=== PATIENT | female | born 1945 | race Caucasian/White ===

== ENCOUNTER → 2016-09-10 | Outpatient (CLI) | payer BC, OTHER | LOC: FIMAGING 15:10 | PROVIDERS: ATTEND Orthopaedic Surgery Orthopaedic Surgery of the Spine | DX: Z09 Encounter for follow-up examination after completed treatment for conditions other than malignant neoplasm (principal); Z98.890 Other specified postprocedural states ==

== ENCOUNTER → 2017-05-31 | Outpatient (CLI) | payer BC, OTHER | LOC: FIMAGING 10:26 | PROVIDERS: ATTEND Family Medicine | DX: Z12.31 Encounter for screening mammogram for malignant neoplasm of breast (principal) | CPT/HCPCS: G0202 ==

== ENCOUNTER → 2017-06-09 | Outpatient (CLI) | payer BC, OTHER | LOC: FIMAGING 14:01 | PROVIDERS: ATTEND Family Medicine | DX: R92.8 Other abnormal and inconclusive findings on diagnostic imaging of breast (principal); N63.10 Unspecified lump in the right breast, unspecified quadrant | CPT/HCPCS: G0206 ==

== ENCOUNTER → 2017-06-20 | Outpatient (CLI) | payer BC, OTHER ==
[~2017-06-20] MED LIST: BUPIVACAINE 0.5% 10 ML SDV ONE; LIDOCAINE 1% 300 MG/30 ML SDV ONE
[2017-06-24 16:37] LABS: FIXED IN 10%FORM 6-72HR Yes; FIXED IN 10%FORM W/IN 1 HR Yes
== END ==
LOC: FIMAGING 07:02
PROVIDERS: ATTEND Family Medicine
PROC: 0HBT3ZX Excision of Right Breast, Percutaneous Approach, Diagnostic (ICD-10-PCS; principal; 2017-06-20)
DX: C50.911 Malignant neoplasm of unspecified site of right female breast (principal)
CPT/HCPCS: G0206

== ENCOUNTER → 2017-07-20 | Day surgery (SDC) | payer BC, OTHER ==
[~2017-07-20] MED LIST changes: -BUPIVACAINE 0.5% 10 ML SDV ONE; +NA BICARBONATE 50 MEQ/50 ML VIAL ONE
== END | disposition home or self-care (01) ==
LOC: FIMAGING 07:06
PROVIDERS: ATTEND Surgery
DX: C50.911 Malignant neoplasm of unspecified site of right female breast (principal)
CPT/HCPCS: 19281; 76098; 78195; A9520

== ENCOUNTER → 2017-12-01 | Outpatient (CLI) | payer BC, OTHER | LOC: FIMAGING 08:45 | PROVIDERS: ATTEND Internal Medicine Hematology & Oncology | DX: Z13.820 Encounter for screening for osteoporosis (principal); M85.89 Other specified disorders of bone density and structure, multiple sites; C50.411 Malignant neoplasm of upper-outer quadrant of right female breast; Z98.1 Arthrodesis status ==

== ENCOUNTER 2018-06-09 12:53 | Inpatient (IN) | payer BC, OTHER ==
--- NOTE | 2018-06-09 13:23 | EDPHY ---
H & P Stated Complaint: abd pain Time Seen by Provider: 06/09/18 13:22 HPI/ROS: HPI: This is a 72-year-old female who presents with Chief Complaint: Abdominal pain Location: Right upper quadrant, epigastric, left upper quadrant Quality: Pain Duration: 1 month Signs and Symptoms: no fever, no nausea, no vomiting, no hematemesis, no blood in stool, no abdominal bloating, no diarrhea, no back pain, no urinary symptoms , no vaginal bleeding/discharge, no indigestion, no chest pain, no shortness of breath Timing: Acute, daily Severity: Worsening Context: Patient has a history of breast cancer, appendectomy, presents with 1 month history of right upper quadrant, epigastric, left upper quadrant pain that is described as constant and slowly worsening in intensity. She reports decreased appetite but no nausea, vomiting, fever, diarrhea, back pain, urinary symptoms. Initially her primary care provider thought it was due to constipation, but she is having bowel movements without relief of pain and in fact the pain is worsening. Takes iron daily due to iron deficiency anemia. Patient reports that she ate half of a donut this morning. Patient was sent to the emergency room for further evaluation by her primary care provider. Modifying Factors: Stool softeners without relief Comment: ROS: A comprehensive 10 system review of systems is otherwise negative aside from elements mentioned in the history of present illness. MEDICAL/SURGICAL/SOCIAL HISTORY: Medical/surgical history: HTN, anemia, peripheral neuropathy, RA, appy, L foot surgery, R knee replacement, breast CA Social history: Nonsmoker. Family history noncontributory. CONSTITUTIONAL: Polite, nontoxic-appearing elderly white female, awake and alert, no obvious distress HEENT: Atraumatic and normocephalic, PERRL, EOMI. Nares patent; no rhinorrhea; no nasal mucosal edema. Tympanic membranes clear. Oropharynx clear, no exudate and moist pink mucosa. Airway patent. No lymphadenopathy. No meningismus. Cardiovascular: Normal S1/S2, tachycardia, regular rhythm, without murmur rub or gallop. PULMONARY/CHEST: Symmetrical and nontender. Clear to auscultation bilaterally. Good air movement. No accessory muscle usage. ABDOMEN: Soft, nondistended, moderate right upper quadrant tenderness, moderate epigastric tenderness, moderate left upper quadrant tenderness no rebound, no guarding, no peritoneal signs, no masses or organomegaly. No CVAT. Bowel sounds heard x4 quadrants. EXTREMITIES: 2/2 pulses, strength 5/5, no deformities, no clubbing, no cyanosis or edema. NEUROLOGICAL: no focal neuro deficits. GCS 15. SKIN: Warm and dry, pallor, no erythema. no rash. Good capillary refill. Source: Patient Exam Limitations: No limitations - Personal History Current Tetanus/Diphtheria Vaccine: Yes Current Tetanus Diphtheria and Acellular Pertussis (TDAP): Yes - Medical/Surgical History Hx Asthma: No Hx Chronic Respiratory Disease: No Hx Diabetes: No Hx Cardiac Disease: No Hx Renal Disease: No Hx Cirrhosis: No Hx Alcoholism: Yes Hx HIV/AIDS: No Hx Splenectomy or Spleen Trauma: No Other PMH: HTN, anemia, peripheral neuropathy, RA, appy, L foot surgery, R knee replacement, breast CA - Social History Smoking Status: Never smoked Constitutional: Initial Vital Signs Temperature (C) 36.9 C 06/09/18 13:10 Heart Rate 100 06/09/18 13:10 Respiratory Rate 16 06/09/18 13:10 Blood Pressure 119/79 06/09/18 13:10 O2 Sat (%) 96 06/09/18 13:10 O2 Delivery Mode Room Air Allergies/Adverse Reactions: colchicine Allergy (Verified 06/09/18 15:00) Dyspnea Home Medications: Medication Instructions Recorded Anastrozole [Arimidex 1 mg (*)] 1 mg PO DAILY 06/09/18 Cholecalciferol Vit D3 [Vitamin D3 2,000 units PO DAILY 06/09/18 (*)] DULoxetine [Cymbalta 30 MG (*)] 30 mg PO DAILY 06/09/18 Etanercept [Enbrel] 50 mg SQ PORRAS 06/09/18 Gabapentin [Neurontin 400 MG (*)] 1,200 mg PO HS 06/09/18 Gemfibrozil [Lopid 600 MG (*)] 600 mg PO BID 06/09/18 Herbals/Supplements -Info Only 1 ea PO DAILY 06/09/18 Lisinopril [Zestril 40 mg (*)] 40 mg PO DAILY 06/09/18 Metoprolol Succinate Xr [Toprol Xl 50 mg PO DAILY 06/09/18 50 mg (*)] traMADol [Ultram 50 mg (*)] 50 mg PO Q6H PRN 06/09/18 Medical Decision Making - Diagnostics Imaging Results: Imaging Impressions Abdomen CT 06/09/18 13:31 Impression: 1. Distended gallbladder with a thickened gallbladder wall, suspicious for cholecystitis. 2. Biliary enhancement suspicious for cholangitis. 3. Peripancreatic stranding suggestive of pancreatitis. 4. Likely subacute mild compression fracture of the superior endplate of L1. 5. Additional findings as above. Findings discussed with Marie Reyez PA-C on June 09, 2018 at 1503 hours. Abdomen Ultrasound 06/09/18 14:48 Impression: Acute cholecystitis with gallstones. Findings and recommendations discussed with Marie Reyez at 3:55 PM hour, . Final report concurs with initial preliminary interpretation. ED Course/Re-evaluation: Vital signs reviewed and stable upon arrival. IV access and laboratory studies along with CT abdomen and pelvis scan ordered Patient has politely declined IV fluids, IV antiemetics, and IV pain medications upon arrival. 1409: Labs reviewed. No signs of anemia/platelet dysfunction/GILBERTO/electrolyte imbalance. T bili 3.5, conjugated bili 2.5, AST 282, ALT 279, alk-phos 305, Lipase is 1999 concerning for acute gallstone pancreatitis. Made NPO status. Abdominal US ordered for further evaluation. Called by radiologist, Dr. Pagan, who advised that CT abdomen and pelvis scan shows stranding around the gallbladder concerning for cholecystitis as well as stranding around the pancreas concerning for pancreatitis as well as cholangitis. Patient also has L1 compression fracture. IV cefoxitin 2 g ordered. Urinalysis shows no signs of infection. 1515: ED decision to consult for admission for gallstone pancreatitis. Spoke with General surgery Dr. Garcia who kindly agrees to consult on the patient, recommends admission to the hospitalist- may need gastroenterology consult for MRCP/ERCP depending on US results. Spoke with hospitalist, Dr. Anderson, who kindly agrees to admit the patient and provide further care. 1605: Called by Dr. Fuentes who advised that ultrasound shows acute cholecystitis, common bile duct measuring 3-4 mm with stones in the gallbladder but none in the duct. There is a stone in the gallbladder neck. Dr. Garcia updated on ultrasound results. No signs of sepsis. This patient was seen under the supervision of my secondary supervising physician. I evaluated care for this patient independently. Discussed this patient with Dr. Schmid who did not see the patient. Differential Diagnosis: Abdominal pain including but not limited to appendicitis, cholecystitis, gastritis and urinary tract infection. - Data Points Laboratory Results: Laboratory Results 06/09/18 13:36 06/09/18 13:36 06/09/18 06/09/18 06/09/18 14:00 13:36 13:36 WBC 11.54 10^3/uL H 10^3/uL (3.80-9.50) RBC 4.80 10^6/uL 10^6/uL (4.18-5.33) Hgb 12.2 g/dL L g/dL (12.6-16.3) Hct 37.3 % L % (38.0-47.0) MCV 77.7 fL L fL (81.5-99.8) MCH 25.4 pg L pg (27.9-34.1) MCHC 32.7 g/dL g/dL (32.4-36.7) RDW 15.7 % H % (11.5-15.2) Plt Count 250 10^3/uL 10^3/uL (150-400) MPV 9.6 fL fL (8.7-11.7) Neut % (Auto) 87.7 % H % (39.3-74.2) Lymph % (Auto) 5.7 % L % (15.0-45.0) [place] % (Auto) 5.5 % % (4.5-13.0) Eos % (Auto) 0.5 % L % (0.6-7.6) Baso % (Auto) 0.2 % L % (0.3-1.7) Nucleat RBC Rel Count 0.0 % % (0.0-0.2) Absolute Neuts (auto) 10.12 10^3/uL H 10^3/uL (1.70-6.50) Absolute Lymphs (auto) 0.66 10^3/uL L 10^3/uL (1.00-3.00) Absolute Monos (auto) 0.63 10^3/uL 10^3/uL (0.30-0.80) Absolute Eos (auto) 0.06 10^3/uL 10^3/uL (0.03-0.40) Absolute Basos (auto) 0.02 10^3/uL 10^3/uL (0.02-0.10) Absolute Nucleated RBC 0.00 10^3/uL 10^3/uL (0-0.01) Immature Gran % 0.4 % % (0.0-1.1) Immature Gran # 0.05 10^3/uL 10^3/uL (0.00-0.10) PT INR APTT Sodium 140 mEq/L mEq/L (135-145) Potassium 3.6 mEq/L mEq/L (3.3-5.0) Chloride 106 mEq/L mEq/L (97-110) Carbon Dioxide 17 mEq/l L mEq/l (22-31) Anion Gap 17 mEq/L H mEq/L (6-14) BUN 14 mg/dL mg/dL (7-23) Creatinine 0.8 mg/dL mg/dL (0.6-1.0) Estimated GFR > 60 Glucose 100 mg/dL mg/dL (70-100) Calcium 9.9 mg/dL mg/dL (8.5-10.4) Total Bilirubin 3.5 mg/dL H mg/dL (0.1-1.4) Conjugated Bilirubin 2.5 mg/dL H mg/dL (0.0-0.5) Unconjugated Bilirubin 1.0 mg/dL mg/dL (0.0-1.1) AST 282 IU/L H IU/L (14-46) ALT 279 IU/L H IU/L (9-52) Alkaline Phosphatase 305 IU/L H IU/L (38-126) Total Protein 7.6 g/dL g/dL (6.3-8.2) Albumin 4.5 g/dL g/dL (3.5-5.0) Lipase 1999 IU/L H IU/L (23-300) Urine Color ZAIN Urine Appearance HAZY Urine pH 5.0 (5.0-7.5) Ur Specific [place] 1.023 (1.002-1.030) Urine Protein 1+ H (NEGATIVE) Urine Ketones NEGATIVE (NEGATIVE) Urine Blood NEGATIVE (NEGATIVE) Urine Nitrate NEGATIVE (NEGATIVE) Urine Bilirubin POSITIVE H (NEGATIVE) Urine Urobilinogen 4.0 EU H EU (0.2-1.0) Ur Leukocyte Esterase NEGATIVE (NEGATIVE) Urine RBC NONE SEEN /hpf /hpf (0-3) Urine WBC 1-3 /hpf /hpf (0-3) Ur Epithelial Cells TRACE /lpf /lpf (NONE-1+) Hyaline Casts 5-15 /lpf /lpf (0-1) Granular Casts 1-5 /lpf /lpf (0-1) Urine Mucus TRACE /lpf /lpf (NONE-1+) Urine Glucose NEGATIVE (NEGATIVE) 06/09/18 12:54 WBC RBC Hgb Hct MCV MCH MCHC RDW Plt Count MPV Neut % (Auto) Lymph % (Auto) [place] % (Auto) Eos % (Auto) Baso % (Auto) Nucleat RBC Rel Count Absolute Neuts (auto) Absolute Lymphs (auto) Absolute Monos (auto) Absolute Eos (auto) Absolute Basos (auto) Absolute Nucleated RBC Immature Gran % Immature Gran # PT 14.3 SEC SEC (12.0-15.0) INR 1.09 (0.83-1.16) APTT 45.1 SEC H SEC (23.0-38.0) Sodium Potassium Chloride Carbon Dioxide Anion Gap BUN Creatinine Estimated GFR Glucose Calcium Total Bilirubin Conjugated Bilirubin Unconjugated Bilirubin AST ALT Alkaline Phosphatase Total Protein Albumin Lipase Urine Color Urine Appearance Urine pH Ur Specific [place] Urine Protein Urine Ketones Urine Blood Urine Nitrate Urine Bilirubin Urine Urobilinogen Ur Leukocyte Esterase Urine RBC Urine WBC Ur Epithelial Cells Hyaline Casts Granular Casts Urine Mucus Urine Glucose Medications Given: Discontinued Medications Sodium Chloride (Ns) 1,000 mls @ 0 mls/hr IV EDNOW ONE; Wide Open PRN Reason: Protocol Stop: 06/09/18 14:11 Last Admin: 06/09/18 14:19 Dose: 1,000 mls Cefoxitin Sodium 2 gm/ Sodium (Chloride) 100 mls @ 200 mls/hr IV EDNOW ONE PRN Reason: Protocol Stop: 06/09/18 15:37 Last Admin: 06/09/18 15:35 Dose: 100 mls Departure - Departure Disposition: [facility] Acute Clinical Impression: Gallstone pancreatitis, Ascending cholangitis Cholecystitis with cholelithiasis Qualifiers: Cholelithiasis location: gallbladder and bile duct Cholecystitis acuity: acute Biliary obstruction: with biliary obstruction Qualified Code(s): K80.63 - Calculus of gallbladder and bile duct with acute cholecystitis with obstruction Compression fracture of L1 lumbar vertebra Qualifiers: Encounter type: initial encounter Fracture type: closed Qualified Code(s): S32.010A - Wedge compression fracture of first lumbar vertebra, initial encounter for closed fracture Condition: Fair
[2018-06-09 13:46] LABS: PLATELET COUNT 250 10^3/uL (150-400)
[2018-06-09] MEDS ORDERED: NS 1,000 ML IV ONE (14:10)
[2018-06-09] MEDS ORDERED: IOPAMIDOL (ISOVUE-300) 100 ML BTL ONE (14:12)
[2018-06-09] MEDS ORDERED: cefOXitin SODIUM 2 GM in NS 100 ML IV ONE (15:08)
[2018-06-09] MEDS ORDERED: ONDANSETRON 4 MG/2 ML VIAL IVP PRN (15:40)
[2018-06-09] MEDS ORDERED: ONDANSETRON DISINTEGRATING 4 MG TAB PO PRN (15:40)
[2018-06-09] MEDS ORDERED: ACETAMINOPHEN 325 MG TAB PO PRN (15:40)
[2018-06-09] MEDS ORDERED: HYDROmorphONE/DILAUDID 1 MG/ML INJ IVP PRN (15:40)
[2018-06-09 16:02] LABS: INR 1.09 (0.83-1.16); PROTIME(PATIENT) 14.3 SEC (12.0-15.0)
--- NOTE | 2018-06-09 16:48 | PDGENHP ---
History and Physical - Chief Complaint "My stomach hurts." - History of Present Illness 72 y/o female presents with 2 week long abdominal pain located in the epigastric , RUQ and RLQ area. She notices it more in the afternoon time or later in the day. She has no appetite but denies nausea. Nothing alleviates the discomfort. Palpating the region aggravates it. Denies chest pains, SOB, fevers, chills, vomiting, or constipation. Had one bout of diarrhea, no blood. Regular bowel movements otherwise, today was bile-colored. Denies dysuria. Endorses belching. Abdominal US: Acute cholecystitis with gallstones. Stone at the gallbladder neck that is nonmobile, estimating [address]: Distended gallbladder with thickened gallbladder wall, suspicious for cholecystitis, biliary enhancement - suspicious for cholangitis, peripancreatic stranding - pancreatitis. Past Medical/Surgical History 1. Right breast cancer/lumpectomy in July 2017 2. Right knee replacement in February 2018 3. Hypertension 4. Appendectomy 5. Anemia 6. Rheumatoid Arthritis 7. Left foot surgery with residual edema 8. Peripheral neuropathy Social 1. Lives in [facility] with her , Demetri who is also POA 2. Denies tobacco or illicit drug use. Denies alcohol. 3. Retired, used to work as a dispatcher for [employer] Vital Signs 119/79 100 HR 16 Respirations 96% RA 36.9 c History Information - Allergies/Home Medication List Allergies/Adverse Reactions: colchicine Allergy (Verified 06/09/18 15:00) Dyspnea Home Medications: Anastrozole [Arimidex 1 mg (*)] 1 mg PO DAILY 06/09/18 [Last Taken 06/09/18] Cholecalciferol Vit D3 [Vitamin D3 (*)] 2,000 units PO DAILY 06/09/18 [Last Taken 06/09/18] DULoxetine [Cymbalta 30 MG (*)] 30 mg PO DAILY 06/09/18 [Last Taken 06/09/18] Etanercept [Enbrel] 50 mg SQ PORRAS 06/09/18 [Last Taken 05/28/18] Gabapentin [Neurontin 400 MG (*)] 1,200 mg PO HS 06/09/18 [Last Taken 06/08/18] Gemfibrozil [Lopid 600 MG (*)] 600 mg PO BID 06/09/18 [Last Taken 06/09/18] Herbals/Supplements -Info Only 1 ea PO DAILY 06/09/18 [Last Taken 06/09/18] Lisinopril [Zestril 40 mg (*)] 40 mg PO DAILY 06/09/18 [Last Taken 06/09/18] Metoprolol Succinate Xr [Toprol Xl 50 mg (*)] 50 mg PO DAILY 06/09/18 [Last Taken 06/09/18] traMADol [Ultram 50 mg (*)] 50 mg PO Q6H PRN 06/09/18 [Last Taken Unknown] I have personally reviewed and updated: family history, medical history, social history, surgical history Past Medical History: See HPI list - Surgical History Additional surgical history: See HPI List - Family History Positive for: myocardial infarction (Mother), stroke - Social History Smoking Status: Never smoked Alcohol Use: None Drug Use: None Review of Systems Review of Systems: ROS: 10pt was reviewed & negative except for what was stated in HPI & below Constitutional: Reports: chills, malaise EENMT: Reports: no symptoms Cardiac: Reports: no symptoms Respiratory: Reports: no symptoms Gastrointestinal: Reports: abdominal pain, abdominal distention, other (bleching ) Genitourinary: Reports: no symptoms Muscolosketal: Reports: back pain Skin: Reports: no symptoms Neurological: Reports: pre-existing deficit (peripheral neuropathy) Hematologic/Lymphatic: Reports: no symptoms Immunologic/Allergy: Reports: other (See allergy list) Physical Exam Physical Exam: Temp Pulse Resp BP Pulse Ox 37.2 C 78 18 145/68 H 97 06/09/18 16:08 06/09/18 16:08 06/09/18 16:08 06/09/18 16:08 06/09/18 16:08 Constitutional: no apparent distress, uncomfortable Eyes: PERRL, anicteric sclera, EOMI Ears, Nose, Mouth, Throat: moist mucous membranes, hearing normal, ears appear normal, no oral mucosal ulcers Cardiovascular: regular rate and rhythym, no murmur, rub, or gallop, tachycardia , No edema Peripheral Pulses: 1+: dorsalis-pedis (R) (Radial 2+), dorsalis-pedis (L) ( Radial 2+: RLE < LLE edema) Respiratory: no respiratory distress, no rales or rhonchi, clear to auscultation Gastrointestinal: normoactive bowel sounds, tenderness, rhodes's sign, guarding , distension Genitourinary: no bladder fullness, no bladder tenderness Skin: warm, normal color, no rashes or abrasions, no fluctuance, no induration, No mottled Musculoskeletal: full muscle strength, no muscle tenderness, normal joint ROM, no joint effusions Neurologic: AAOx3, sensation intact bilaterally, CN II-XII Intact Psychiatric: interacting appropriately, not anxious, not encephalopathic, thought process linear Lymph, Heme, Immunologic: no cervical LAD, no supraclavicular LAD Lab Data & Imaging Review 06/09/18 13:36 06/09/18 13:36 WBC 11.54 10^3/uL (3.80-9.50) H 06/09/18 13:36 RBC 4.80 10^6/uL (4.18-5.33) 06/09/18 13:36 Hgb 12.2 g/dL (12.6-16.3) L 06/09/18 13:36 Hct 37.3 % (38.0-47.0) L 06/09/18 13:36 MCV 77.7 fL (81.5-99.8) L 06/09/18 13:36 MCH 25.4 pg (27.9-34.1) L 06/09/18 13:36 MCHC 32.7 g/dL (32.4-36.7) 06/09/18 13:36 RDW 15.7 % (11.5-15.2) H 06/09/18 13:36 Plt Count 250 10^3/uL (150-400) 06/09/18 13:36 MPV 9.6 fL (8.7-11.7) 06/09/18 13:36 Neut % (Auto) 87.7 % (39.3-74.2) H 06/09/18 13:36 Lymph % (Auto) 5.7 % (15.0-45.0) L 06/09/18 13:36 [place] % (Auto) 5.5 % (4.5-13.0) 06/09/18 13:36 Eos % (Auto) 0.5 % (0.6-7.6) L 06/09/18 13:36 Baso % (Auto) 0.2 % (0.3-1.7) L 06/09/18 13:36 Nucleat RBC Rel Count 0.0 % (0.0-0.2) 06/09/18 13:36 Absolute Neuts (auto) 10.12 10^3/uL (1.70-6.50) H 06/09/18 13:36 Absolute Lymphs (auto) 0.66 10^3/uL (1.00-3.00) L 06/09/18 13:36 Absolute Monos (auto) 0.63 10^3/uL (0.30-0.80) 06/09/18 13:36 Absolute Eos (auto) 0.06 10^3/uL (0.03-0.40) 06/09/18 13:36 Absolute Basos (auto) 0.02 10^3/uL (0.02-0.10) 06/09/18 13:36 Absolute Nucleated RBC 0.00 10^3/uL (0-0.01) 06/09/18 13:36 Immature Gran % 0.4 % (0.0-1.1) 06/09/18 13:36 Immature Gran # 0.05 10^3/uL (0.00-0.10) 06/09/18 13:36 PT 14.3 SEC (12.0-15.0) 06/09/18 12:54 INR 1.09 (0.83-1.16) 06/09/18 12:54 APTT 45.1 SEC (23.0-38.0) H 06/09/18 12:54 Sodium 140 mEq/L (135-145) 06/09/18 13:36 Potassium 3.6 mEq/L (3.3-5.0) 06/09/18 13:36 Chloride 106 mEq/L (97-110) 06/09/18 13:36 Carbon Dioxide 17 mEq/l (22-31) L 06/09/18 13:36 Anion Gap 17 mEq/L (6-14) H 06/09/18 13:36 BUN 14 mg/dL (7-23) 06/09/18 13:36 Creatinine 0.8 mg/dL (0.6-1.0) 06/09/18 13:36 Estimated GFR > 60 06/09/18 13:36 Glucose 100 mg/dL (70-100) 06/09/18 13:36 Calcium 9.9 mg/dL (8.5-10.4) 06/09/18 13:36 Total Bilirubin 3.5 mg/dL (0.1-1.4) H 06/09/18 13:36 Conjugated Bilirubin 2.5 mg/dL (0.0-0.5) H 06/09/18 13:36 Unconjugated Bilirubin 1.0 mg/dL (0.0-1.1) 06/09/18 13:36 AST 282 IU/L (14-46) H 06/09/18 13:36 ALT 279 IU/L (9-52) H 06/09/18 13:36 Alkaline Phosphatase 305 IU/L (38-126) H 06/09/18 13:36 Total Protein 7.6 g/dL (6.3-8.2) 06/09/18 13:36 Albumin 4.5 g/dL (3.5-5.0) 06/09/18 13:36 Lipase 1999 IU/L (23-300) H 06/09/18 13:36 Urine Color ZAIN 06/09/18 14:00 Urine Appearance HAZY 06/09/18 14:00 Urine pH 5.0 (5.0-7.5) 06/09/18 14:00 Ur Specific [place] 1.023 (1.002-1.030) 06/09/18 14:00 Urine Protein 1+ (NEGATIVE) H 06/09/18 14:00 Urine Ketones NEGATIVE (NEGATIVE) 06/09/18 14:00 Urine Blood NEGATIVE (NEGATIVE) 06/09/18 14:00 Urine Nitrate NEGATIVE (NEGATIVE) 06/09/18 14:00 Urine Bilirubin POSITIVE (NEGATIVE) H 06/09/18 14:00 Urine Urobilinogen 4.0 EU (0.2-1.0) H 06/09/18 14:00 Ur Leukocyte Esterase NEGATIVE (NEGATIVE) 06/09/18 14:00 Urine RBC NONE SEEN /hpf (0-3) 06/09/18 14:00 Urine WBC 1-3 /hpf (0-3) 06/09/18 14:00 Ur Epithelial Cells TRACE /lpf (NONE-1+) 06/09/18 14:00 Hyaline Casts 5-15 /lpf (0-1) 06/09/18 14:00 Granular Casts 1-5 /lpf (0-1) 06/09/18 14:00 Urine Mucus TRACE /lpf (NONE-1+) 06/09/18 14:00 Urine Glucose NEGATIVE (NEGATIVE) 06/09/18 14:00 Assessment & Plan Plan: 72 y/o female presenting with gallstone pancreatitis. 1. Acute cholecystitis with cholelithiasis -CBC/CMP for tomorrow -LFTs for tomorrow -Surgery consulted and aware: Dr. Garcia recommends NPO and IV hydration. Recheck bilirubin and if dropping to 1, assume she passed the stone and proceed with cholecystectomy in the next day or so. If bilirubin is 3 or higher, perform ERCP and contact gastroenterology. -Gastroenterology was contacted: Dr. Martinez and I discussed the case. He asked a MRCP be performed and if studies show common bile duct obstruction, then gastroenterology will get involved. Asked to be contacted again if that is the case. In the meantime, surgery is the only speciality consulting. -IVF -NPO status -Invanz QD 2. Pancreatitis -NPO status -IVF -Pain control -Lipase check for tomorrow 3. Anemia -Iron panel for tomorrow 4. HTN -Continue metoprolol and lisinopril Diet: NPO VTE ppx: SCDs Code: Full Dispo: Admit to obs
--- NOTE | 2018-06-09 17:19 | GHP ---
DATE OF ADMISSION: 06/09/2018 CHIEF COMPLAINT: Transpyloric pain. PRESENT ILLNESS: The patient is a 72-year-old female who has had upper abdominal pain since . It abated and her urine which initially had darkened became clear again. Now she has pain acr oss the transpyloric plane and noticed urine was dark in color, and came to the emergency department. A variety of diagnostic tests were done including a lab test showing a white blood count of 11.5, b ilirubin 3.5, elevated transaminase in the 280 range. Alkaline phosphatase 305. Lipase almost 2000. CT scan shows normal size common bile duct. Some minimal stranding around an otherwise normal-appear ing pancreas. No ductal dilatation of the pancreas. No masses, but distended gallbladder. Ultrasound shows multiple gallstones in the common duct, appropriate for age 0.7 mm. PAST MEDICAL HISTORY: ALLERGIES: Codeine. CURRENT MEDICATIONS: Include Enbrel for rheumatoid arthritis, Lopressor, lisinopril, tramadol, Arimi dex for previous right breast cancer, Neurontin. SOCIAL HISTORY: Nonsmoker, nondrinker. PREVIOUS SURGERY: Appendectomy through a lengthy right pararectus incision, right lumpectomy, left a nkle and foot surgery. REVIEW OF SYSTEMS: Rheumatoid arthritis, previous history remote breast cancer, neuropathy in her fe et, unknown etiology. She denies heart trouble, diabetes or epilepsy. IMAGING: Studies described above. PHYSICAL EXAM: GENERAL: Pleasant female in minimal distress. HEENT: The patient has scleral icter us. Pharynx clear. NECK: Supple without adenopathy. LUNGS: Clear. HEART: Normal S1, S2 without murmur. HEART: Regular rate and rhythm. ABDOMEN: Soft but tender across the transpyloric plane. Positive Frederick sign. Healed right pararectus incision. ASSESSMENT: Cholelithiasis with possible choledocholithiasis and gallstone pancreatitis. Despite th e absence of common duct dilatation it is likely she has a common duct stone. RECOMMENDATIONS: Admit, n.p.o., IV hydration. Despite the elevated white blood count, antibiotics a re not particularly necessary. I would recheck bilirubin in the morning. Should it be dropping to n ormal 1 might assume she passed the stone and proceed with cholecystectomy in the next day or 2. Zora uld the bilirubin still be in the 3 or higher range, preoperative ERCP should be done and I would rec ommend contacting Gastroenterology. I will follow the patient with you and should her pancreatitis improve and common duct be cleared of stones tomorrow, a cholecystectomy Tuesday would be appropriate and I would be available for that. /[id number]/MODL
[2018-06-09] MEDS: NS 1,000 ML IV SCH (18:38)
--- NOTE | 2018-06-09 19:25 | HOSPPROG ---
Hospitalist Progress Note Assessment/Plan: 2 weeks h/o ruq abd pain, nausea, anorexia - sharp radiating to back. interestingly went away for a few days then returned. a/p 1. Cholecystitis/choleangitis * Invanz * monitor bili * MRCP - ERCP if choledocholithiasis suspected * cholecystectomy prior to dc 2. Pancreatitis * monitor lipase 3. remote h/o of breast cancer 4. microcytic anemia * check iron studies Objective: Vital Signs Temp Pulse Resp BP Pulse Ox 37.2 C 83 16 143/76 H 97 06/09/18 18:22 06/09/18 18:22 06/09/18 18:22 06/09/18 18:22 06/09/18 18:22 PT 14.3 SEC (12.0-15.0) 06/09/18 12:54 INR 1.09 (0.83-1.16) 06/09/18 12:54 - Physical Exam Constitutional: no apparent distress, appears nourished, not in pain Eyes: EOMI Ears, Nose, Mouth, Throat: moist mucous membranes Cardiovascular: regular rate and rhythym, systolic murmur (rusb) Gastrointestinal: normoactive bowel sounds, tenderness (ruq, ), No guarding, No rebound Skin: warm Neurologic: AAOx3 Psychiatric: interacting appropriately, not anxious, not encephalopathic, thought process linear ICD10 Worksheet Patient Problems: Problems Problem Status Onset Ascending cholangitis Acute Cholecystitis with cholelithiasis Acute Compression fracture of L1 lumbar vertebra Acute Gallstone pancreatitis Acute
[2018-06-09] MEDS: GABAPENTIN 400 MG CAP PO SCH (21:02)
[2018-06-10] MEDS: MELATONIN 3 MG TAB PO SCH ×2 (02:44→21:01)
[2018-06-10 04:55] LABS: PLATELET COUNT 203 10^3/uL (150-400)
--- NOTE | 2018-06-10 06:54 | SOAPPROG ---
SOAP Progress Note Assessment/Plan: Assessment: Plan: Subjective: feels a bit better abd softer- still with tenderness in epigastrium and right upper quadrant. bili down to 1.9- posssilby passed stone. lipase down to 800 assess: improving pancreatitis. bili trending downward. would keep npo, check bili in am. if still going down, would forego an ercp and do a choelcystectomy tomorrow. Objective: Vital Signs Temp Pulse Resp BP Pulse Ox 36.9 C 81 16 131/67 H 93 06/10/18 04:35 06/10/18 04:35 06/10/18 04:35 06/10/18 04:35 06/10/18 04:35 Laboratory Results 06/10/18 04:26 06/10/18 04:26 06/09/18 06/10/18 06/11/18 05:59 05:59 05:59 Intake Total 650 Output Total 500 Balance 150 PT 14.3 SEC (12.0-15.0) 06/09/18 12:54 INR 1.09 (0.83-1.16) 06/09/18 12:54 ICD10 Worksheet Patient Problems: Problems Problem Status Onset Ascending cholangitis Acute Cholecystitis with cholelithiasis Acute Compression fracture of L1 lumbar vertebra Acute Gallstone pancreatitis Acute
[2018-06-10] MEDS: NS 1,000 ML IV SCH ×2 (07:50→16:54)
[2018-06-10] MEDS: LISINOPRIL 40 MG TAB PO SCH (07:51)
[2018-06-10] MEDS: METOPROLOL SUCCINATE XR 50 MG TAB PO SCH (07:51)
[2018-06-10] MEDS: DULoxetine 30 MG CAP PO SCH (07:51)
[2018-06-10] MEDS: ERTAPENEM 1 GM in NS 100 ML IV SCH (09:38)
--- NOTE | 2018-06-10 10:06 | ASMTCMCOM ---
CM Note CM Note Notes: CM reviewed pt's chart for d/c planning. Pt is a 72y/o female who was sent to the ED by her primary physician due to 1 month of increasing abdominal pain. Pt diagnosed with choleithiasis with possible choledocholithiasis and gallstone pancreatitis. The pt is retired and lives with her , Demetri [phone]. PT and OT not ordered. Anticipate independent. D/C: Anticipate independent. Date Signed: 06/10/2018 10:05 AM Electronically Signed By:Dulce Dorantes
--- NOTE | 2018-06-10 10:32 | HOSPPROG ---
Hospitalist Progress Note Assessment/Plan: 72-year-old woman with a remote history of breast cancer is admitted with right upper quadrant abdominal pain and found to have cholecystitis and possible choledocholithiasis. # cholecystitis/cholangitis appreciate General surgery evaluation. S clinically improved today with less pain and less nausea vomiting. * Keep NPO and monitor * Continue Invanz * Likely laparoscopic cholecystectomy tomorrow if continues to be improving. * MRCP shows no choledocholithiasis, if significantly increased LFTs could consider ERCP # pancreatitis, mild # remote history of breast cancer # anemia, microcytic with normal ferritin level. Unclear etiology possible hemoglobinopathy can address this as an outpatient as there does not appear to be any acute bleeding. Disposition: Patient with ongoing pain and NPO status with IV fluids for pancreatitis. Will need additional midnight stay Subjective: Patient new to me and chart reviewed. Continues to have abdominal pain and is unable to eat however more comfortable than admission. Objective: Vital Signs Temp Pulse Resp BP Pulse Ox 37.1 C 81 16 130/70 H 93 06/10/18 07:25 06/10/18 07:51 06/10/18 07:25 06/10/18 07:51 06/10/18 07:25 Laboratory Results 06/10/18 04:26 06/10/18 04:26 06/09/18 06/10/18 06/11/18 05:59 05:59 05:59 Intake Total 650 Output Total 500 1 Balance 150 -1 PT 14.3 SEC (12.0-15.0) 06/09/18 12:54 INR 1.09 (0.83-1.16) 06/09/18 12:54 - Physical Exam Constitutional: no apparent distress Eyes: PERRL Ears, Nose, Mouth, Throat: moist mucous membranes Cardiovascular: regular rate and rhythym, No systolic murmur Respiratory: no respiratory distress, clear to auscultation Gastrointestinal: no palpable masses, tenderness (Epigastric area, mild), No guarding Genitourinary: no bladder fullness Skin: warm Musculoskeletal: no muscle tenderness Neurologic: AAOx3 Psychiatric: interacting appropriately ICD10 Worksheet Patient Problems: Problems Problem Status Onset Gallstone pancreatitis Acute Cholecystitis with cholelithiasis Acute Ascending cholangitis Acute Compression fracture of L1 lumbar vertebra Acute
--- NOTE | 2018-06-10 10:52 | PDMN ---
Medical Necessity Medical necessity: MCG : M250 pancreatitis 2 days: pt presents with RUQ abd pain Lipase elevated 1998, 734, LFT's elevated- bili elevated 3.5, 1.9,- abd CT shows cholecystitis/cholangitis, peripancreatic stranding suggestive of pancreatitis. , pt with ongoing pain sgy consult requests pt remain NPO , IVF, IV pain, PMH Br. Ca., > 2 MN med nec care , further monitoring and tx needed. status changed to INPT 06/10/18
[2018-06-10] MEDS: traMADol 50 MG TAB PO PRN (21:00)
[2018-06-10] MEDS: GABAPENTIN 400 MG CAP PO SCH (21:00)
[2018-06-11] MEDS: NS 1,000 ML IV SCH ×2 (01:09→09:14)
[2018-06-11] MEDS ORDERED: PROTOCOL POTASSIUM 1 DOSE MISC PRN (08:14)
--- NOTE | 2018-06-11 08:50 | SOAPPROG ---
SOELIANE Progress Note Assessment/Plan: Assessment: Plan: Subjective: vss, af abd soft, non tender today yaima 1.o assess: resolving gallsotned pancreatitis recc: cholecystectomy today. risks and benefits discussed with the pt. Objective: Vital Signs Temp Pulse Resp BP Pulse Ox 36.6 C 70 16 127/73 H 96 06/11/18 07:37 06/11/18 07:37 06/11/18 07:37 06/11/18 07:37 06/11/18 07:37 Laboratory Results 06/10/18 04:26 06/11/18 04:28 06/10/18 06/11/18 06/12/18 05:59 05:59 05:59 Intake Total 650 2750 Output Total 500 551 Balance 150 2199 PT 14.3 SEC (12.0-15.0) 06/09/18 12:54 INR 1.09 (0.83-1.16) 06/09/18 12:54 ICD10 Worksheet Patient Problems: Problems Problem Status Onset Ascending cholangitis Acute Cholecystitis with cholelithiasis Acute Compression fracture of L1 lumbar vertebra Acute Gallstone pancreatitis Acute
[2018-06-11] MEDS: ERTAPENEM 1 GM in NS 100 ML IV SCH (09:14)
[2018-06-11] MEDS ORDERED: POTASSIUM CL 10 MEQ TAB PO ONE (09:17)
[2018-06-11] MEDS: DULoxetine 30 MG CAP PO SCH (09:18)
[2018-06-11] MEDS: METOPROLOL SUCCINATE XR 50 MG TAB PO SCH (09:24)
[2018-06-11] MEDS: LISINOPRIL 40 MG TAB PO SCH (09:24)
--- NOTE | 2018-06-11 10:08 | HOSPPROG ---
Hospitalist Progress Note Assessment/Plan: 72-year-old woman with a remote history of breast cancer is admitted with right upper quadrant abdominal pain and found to have cholecystitis and possible choledocholithiasis. # cholecystitis/cholangitis appreciate General surgery evaluation. S clinically improved today with less pain and less nausea vomiting. Discussed with Dr. Garcia * Keep NPO and monitor * Continue Invanz * Laparoscopic cholecystectomy today, monitor overnight and discharge in the morning # diarrhea, this has improved slightly. C diff negative continue to monitor # pancreatitis, mild # remote history of breast cancer # anemia, microcytic with normal ferritin level. Unclear etiology possible hemoglobinopathy can address this as an outpatient as there does not appear to be any acute bleeding. Disposition: Patient with ongoing pain and NPO status with IV fluids for pancreatitis. Will need additional midnight stay Subjective: Minimal abdominal pain this morning, waiting for surgery Objective: Vital Signs Temp Pulse Resp BP Pulse Ox 36.6 C 69 16 134/69 H 96 06/11/18 07:37 06/11/18 09:24 06/11/18 07:37 06/11/18 09:24 06/11/18 07:37 Laboratory Results 06/10/18 04:26 06/11/18 04:28 06/10/18 06/11/18 06/12/18 05:59 05:59 05:59 Intake Total 650 2750 Output Total 500 551 Balance 150 2199 PT 14.3 SEC (12.0-15.0) 06/09/18 12:54 INR 1.09 (0.83-1.16) 06/09/18 12:54 - Physical Exam Constitutional: no apparent distress Eyes: PERRL Ears, Nose, Mouth, Throat: moist mucous membranes Cardiovascular: regular rate and rhythym Respiratory: no respiratory distress, clear to auscultation Gastrointestinal: soft, non-tender abdomen Neurologic: AAOx3 Psychiatric: interacting appropriately, not anxious ICD10 Worksheet Patient Problems: Problems Problem Status Onset Gallstone pancreatitis Acute Cholecystitis with cholelithiasis Acute Ascending cholangitis Acute Compression fracture of L1 lumbar vertebra Acute
[2018-06-11] MEDS ORDERED: BUPIVACAINE/EPI 0.5% 30 ML SDV ONE (10:14)
[2018-06-11] MEDS ORDERED: ONDANSETRON 4 MG/2 ML VIAL IVP PRN (10:47)
[2018-06-11] MEDS ORDERED: ALBUTEROL 3 ML DEYVIAL IH PRN (10:47)
[2018-06-11] MEDS ORDERED: HYDROmorphONE/DILAUDID 2 MG/ML INJ IVP PRN (10:47)
[2018-06-11] MEDS ORDERED: DEXAMETHASONE 4 MG/ML VIAL IVP PRN (10:47)
[2018-06-11] MEDS ORDERED: NALOXONE HCL 0.4 MG/ML INJ IVP PRN (10:47)
[2018-06-11] MEDS ORDERED: fentaNYL 100 MCG/2 ML INJ IVP PRN (10:47)
--- NOTE | 2018-06-11 10:47 | PDANEPAE ---
ANE History of Present Illness here for lap juan manuel JAVED Past Medical History - Cardiovascular History Hx Hypertension: No Hx Arrhythmias: No Hx Chest Pain: No Hx Coronary Artery / Peripheral Vascular Disease: No Hx CHF / Valvular Disease: No Hx Palpitations: No - Pulmonary History Hx COPD: No Hx Asthma/Reactive Airway Disease: No Hx Recent Upper Respiratory Infection: No Hx Oxygen in Use at Home: No Hx Sleep Apnea: No Sleep Apnea Screening Result - Last Documented: Negative - Endocrine History Hx Diabetes: No Obesity: mild - Renal History Hx Renal Disorders: No - Liver History Hx Hepatic Disorders: No - Neurological & Psychiatric Hx Hx Neurological and Psychiatric Disorders: No - Cancer History Hx Cancer: Yes Cancer History Comment: remote history of breast cancer ANE Review of Systems Review of systems is: negative Review of Systems: - Exercise capacity Exercise capacity: >=4 METS ANE Patient History - Allergies Allergies/Adverse Reactions: colchicine Allergy (Verified 06/09/18 15:00) Dyspnea - Home Medications Home medications: home medication list seen and reviewed Home Medications: Anastrozole [Arimidex 1 mg (*)] 1 mg PO DAILY 06/09/18 [Last Taken 06/09/18] Cholecalciferol Vit D3 [Vitamin D3 (*)] 2,000 units PO DAILY 06/09/18 [Last Taken 06/09/18] DULoxetine [Cymbalta 30 MG (*)] 30 mg PO DAILY 06/09/18 [Last Taken 06/09/18] Etanercept [Enbrel] 50 mg SQ PORRAS 06/09/18 [Last Taken 05/28/18] Gabapentin [Neurontin 400 MG (*)] 1,200 mg PO HS 06/09/18 [Last Taken 06/08/18] Gemfibrozil [Lopid 600 MG (*)] 600 mg PO BID 06/09/18 [Last Taken 06/09/18] Herbals/Supplements -Info Only 1 ea PO DAILY 06/09/18 [Last Taken 06/09/18] Lisinopril [Zestril 40 mg (*)] 40 mg PO DAILY 06/09/18 [Last Taken 06/09/18] Metoprolol Succinate Xr [Toprol Xl 50 mg (*)] 50 mg PO DAILY 06/09/18 [Last Taken 06/09/18] traMADol [Ultram 50 mg (*)] 50 mg PO Q6H PRN 06/09/18 [Last Taken Unknown] - NPO status NPO Status: no food or drink >8 hours NPO Since - Liquids (Date): 06/09/18 NPO Since - Liquids (Time): 00:00 NPO Since - Solids (Date): 06/09/18 NPO Since - Solids (Time): 00:00 - Smoking Hx Smoking Status: Never smoked - Alcohol Use Alcohol Use: None ANE Labs/Vital Signs - Labs Result Diagrams: 06/10/18 04:26 06/11/18 04:28 - Vital Signs Blood Pressure: 134/69 Heart Rate: 69 Respiratory Rate: 16 O2 Sat (%): 96 Height: 165.1 cm Weight: 86.636 kg ANE Physical Exam - Airway Neck exam: FROM Mallampati Score: Class 1 - Pulmonary Pulmonary: no respiratory distress - Cardiovascular Cardiovascular: regular rate and rhythym - ASA Status ASA Status: II ANE Anesthesia Plan Anesthesia Plan: general endotracheal anesthesia
[2018-06-11] MEDS ORDERED: PROPOFOL/EMULSION 500 MG/50 ML BOTTLE IV ONE (11:00)
[2018-06-11] MEDS ORDERED: fentaNYL 100 MCG/2 ML INJ ONE ×2 (11:03→11:43)
[2018-06-11] MEDS ORDERED: SURGIFLO MATRIX KIT WITH THROMBIN 8 ML TP ONE (12:51)
[2018-06-11] MEDS ORDERED: SUGAMMADEX SODIUM 200 MG/2 ML VIAL IVP ONE (13:00)
--- NOTE | 2018-06-11 13:25 | POSTOPPROG ---
Post Op Note Date of Operation: 06/11/18 Surgeon: Brijesh Garcia Pre-op Diagnosis: cholithiasis Post-op Diagnosis: same Indication: gallstone pancreatitis Procedure: lap choly Findings: dense adhesions and fibrosis, difficult dissection Inf/Abcess present in the surg proc area at time of surgery?: No EBL: Minimal
[2018-06-11] MEDS ORDERED: HYDROmorphONE/DILAUDID 2 MG/ML INJ ONE (13:39)
[2018-06-11] MEDS ORDERED: PNEUMOC 13-VAL CONJ-DIP CRM/PF 0.5 ML SYR (PREVNAR 13) IM ONE (14:29)
--- NOTE | 2018-06-11 15:43 | POSTANESTH ---
Post Anesthetic Evaluation Cardiovascular Status: Normal, Stable Respiratory Status: Normal, Stable Level of Consciousness/Mental Status: Can Participate in Eval Pain Control: Adequate, Prn Tx Ordered Nausea/Vomiting Control: Adequate, Prn Tx Ordered Complications Possibly Related to Anesthesia: None Noted
[2018-06-11] MEDS: traMADol 50 MG TAB PO PRN (16:37)
--- NOTE | 2018-06-11 18:37 | GOP ---
DATE OF OPERATION: SURGEON: Brijesh Garcia MD PREOPERATIVE DIAGNOSIS: Cholelithiasis, cholecystitis, biliary pancreatitis. POSTOPERATIVE DIAGNOSIS: Cholelithiasis, cholecystitis, biliary pancreatitis. PROCEDURE PERFORMED: Laparoscopic cholecystectomy. FINDINGS: INDICATIONS: A 72-year-old female admitted with a lipase of 1400, bilirubin of 3.5, treated conserva tively, and her laboratory tests have now normalized. She has gallstones. MRI showed no common duct stones. It was felt appropriate to do a laparoscopic cholecystectomy. DESCRIPTION OF PROCEDURE: General anesthetic. The abdomen scrubbed with ChloraPrep. Draped in the usual sterile fashion. Infraumbilical incision made. Veress needle used to achieve a pneumoperitone um. The omentum was quite adherent to the upper 2/3 of the gallbladder. This was carefully taken do wn and required sharp (as opposed to blunt) dissection, but eventually the omentum was completely rel eased. It was then noted that the duodenum was stuck on the lower portion of the gallbladder. This was carefully dissected away as well without causing any injury. At this point, the triangle of Grace t and hepatoduodenal ligament were visualized, and these were fibrotic and adherent, and only with ve ry careful, delicate dissection could the cystic duct and artery be identified. These were then clip ped and divided after the cystic plate had been cleared off and the critical view obtained. The gall bladder was removed from below upward with electrocautery, placed in the Endo pouch for later retriev al. Minor bleeding points in the liver bed were controlled with the cautery and some Floseal was lanette neetu in this area as well. The wound was quite dry at the termination of the procedure. The gallblad hina was extracted through the fascial defect at the umbilicus. All free fluid was aspirated from the right upper quadrant with suction. The fascial defect at the umbilicus was closed with several figu re-of-eight 0 Vicryl sutures, skin with 4-0 Vicryl and Dermabond. The patient tolerated the procedur e well. /[id number]/MODL
[2018-06-11] MEDS: oxyCODONE IR 5 MG TAB PO PRN (19:41)
[2018-06-11] MEDS: GABAPENTIN 400 MG CAP PO SCH (22:36)
[2018-06-11] MEDS: MELATONIN 3 MG TAB PO SCH (22:36)
[2018-06-12] MEDS ORDERED: POTASSIUM CL 10 MEQ TAB PO ONE (00:25)
[2018-06-12] MEDS: NS 1,000 ML IV SCH (00:52)
--- NOTE | 2018-06-12 06:51 | SOAPPROG ---
SOAP Progress Note Assessment/Plan: Assessment: Plan: Subjective: vss, af abd soft asses: uneventful recovery from lap choly. advance diet, hep lock iv, may dc home today if doing well. follow up with dr rust 1 week. Objective: Vital Signs Temp Pulse Resp BP Pulse Ox 36.6 C 59 L 16 110/54 L 100 06/12/18 04:00 06/12/18 04:00 06/12/18 04:00 06/12/18 04:00 06/12/18 04:00 Laboratory Results 06/10/18 04:26 06/12/18 04:35 06/11/18 06/12/18 06/13/18 05:59 05:59 05:59 Intake Total 2750 2390 Output Total 551 400 Balance 2199 1990 PT 14.3 SEC (12.0-15.0) 06/09/18 12:54 INR 1.09 (0.83-1.16) 06/09/18 12:54 ICD10 Worksheet Patient Problems: Problems Problem Status Onset Ascending cholangitis Acute Cholecystitis with cholelithiasis Acute Compression fracture of L1 lumbar vertebra Acute Gallstone pancreatitis Acute
[2018-06-12] MEDS: DULoxetine 30 MG CAP PO SCH (09:06)
[2018-06-12] MEDS: ERTAPENEM 1 GM in NS 100 ML IV SCH (09:06)
[2018-06-12] MEDS: LISINOPRIL 40 MG TAB PO SCH (09:07)
[2018-06-12] MEDS: METOPROLOL SUCCINATE XR 50 MG TAB PO SCH (09:07)
[2018-06-12] MEDS: traMADol 50 MG TAB PO PRN (09:27)
[2018-06-12] MEDS ORDERED: PNEUMOC 13-VAL CONJ-DIP CRM/PF 0.5 ML SYR (PREVNAR 13) IM ONE ×2 (09:30→14:30)
[2018-06-12] MEDS: oxyCODONE IR 5 MG TAB PO PRN ×2 (13:15→16:55)
--- NOTE | 2018-06-12 17:55 | HOSPPROG ---
Hospitalist Progress Note Assessment/Plan: Subjective Follow-up on acute cholecystitis status post cholecystectomy. Patient states that her abdominal pain was significantly improved this morning but throughout the day has had worsening pain around the epigastrium particularly when she takes a deep breath. No subjective shortness of breath or coughing. No subjective fevers noted either. She did state that she has something to eat and that this did not seem to exacerbate the pain. No nausea vomiting after eating. She tried tramadol earlier in the day which did not have much effect so she had just taken a dose of oxycodone about 30 min prior to my examination. Objective Vitals as detailed below Exam General-awake alert conversant, mild distress secondary to epigastric discomfort Heart-regular rate and rhythm no murmurs Lungs-Clear to auscultation with normal respiratory effort Abdomen-soft nondistended with slightly diminished bowel sounds, tender at the epigastrium with pain Extremities-no significant pitting edema or calf pain with palpation Skin-no concerning skin rashes noted Labs as detailed below Assessment plan Cholecystitis/cholangitis-status post cholecystectomy. Continue current IV antibiotic therapy. Monitor again overnight as some worsening of pain throughout the day today. Pancreatitis-suspecting secondary to cholecystitis. I will recheck a lipase level tomorrow. Anemia-hemoglobin trended from 12-10 overnight. Recheck again tomorrow morning. Suspected acute blood losses from surgery and dilutional. Hypertension-controlled. No changes today. Rheumatoid arthritis-no changes planned to her current treatment. DVT prophylaxis-heparin. Disposition-she is cleared to return home from a surgical standpoint. With the escalating pain throughout the day with the pain at her epigastrium I recommend that we monitor her here overnight prior to discharge. Objective: Vital Signs Temp Pulse Resp BP Pulse Ox 36.9 C 82 14 129/84 H 89 L 06/12/18 16:03 06/12/18 16:03 06/12/18 16:03 06/12/18 16:03 06/12/18 16:03 Laboratory Results 06/10/18 04:26 06/12/18 04:35 06/11/18 06/12/18 06/13/18 05:59 05:59 05:59 Intake Total 2750 2390 500 Output Total 551 400 550 Balance 2199 1990 -50 PT 14.3 SEC (12.0-15.0) 06/09/18 12:54 INR 1.09 (0.83-1.16) 06/09/18 12:54 ICD10 Worksheet Patient Problems: Problems Problem Status Onset Ascending cholangitis Acute Cholecystitis with cholelithiasis Acute Compression fracture of L1 lumbar vertebra Acute Gallstone pancreatitis Acute
[2018-06-12] MEDS: GABAPENTIN 400 MG CAP PO SCH (21:59)
[2018-06-12] MEDS: MELATONIN 3 MG TAB PO SCH (22:00)
[2018-06-13] MEDS ORDERED: POTASSIUM CL 10 MEQ TAB PO ONE ×2 (00:07→09:55)
[2018-06-13 05:39] LABS: PLATELET COUNT 221 10^3/uL (150-400)
--- NOTE | 2018-06-13 07:31 | SOAPPROG ---
HUGO Progress Note Assessment/Plan: Assessment: Plan: Subjective: feels good, toleratied diet., no pain abd soft, non tender assess: recovering from cholecystectomy and pancreatitis recc: dc home followup with dr rodriguez 1 week. avoid alcohol. Objective: Vital Signs Temp Pulse Resp BP Pulse Ox 36.9 C 88 16 133/64 H 91 L 06/13/18 04:00 06/13/18 04:00 06/13/18 04:00 06/13/18 04:00 06/13/18 04:00 Laboratory Results 06/13/18 04:40 06/13/18 04:40 06/12/18 06/13/18 06/14/18 05:59 05:59 05:59 Intake Total 2390 1989 Output Total 400 850 Balance 1989 1140 PT 14.3 SEC (12.0-15.0) 06/09/18 12:54 INR 1.09 (0.83-1.16) 06/09/18 12:54 ICD10 Worksheet Patient Problems: Problems Problem Status Onset Ascending cholangitis Acute Cholecystitis with cholelithiasis Acute Compression fracture of L1 lumbar vertebra Acute Gallstone pancreatitis Acute
[2018-06-13] MEDS: ERTAPENEM 1 GM in NS 100 ML IV SCH (09:29)
[2018-06-13] MEDS: DULoxetine 30 MG CAP PO SCH (09:29)
[2018-06-13] MEDS: LISINOPRIL 40 MG TAB PO SCH (09:32)
[2018-06-13] MEDS: METOPROLOL SUCCINATE XR 50 MG TAB PO SCH (09:34)
[2018-06-13 09:35] VITALS: BP 121/58
[2018-06-13] MEDS ORDERED: PNEUMOC 13-VAL CONJ-DIP CRM/PF 0.5 ML SYR (PREVNAR 13) IM ONE (09:55)
--- NOTE | 2018-06-13 11:05 | GDS ---
DIAGNOSES: 1. Pancreatitis secondary to cholecystitis. 2. Cholecystitis status post laparoscopic cholecystectomy. 3. Diarrhea, improving. 4. Remote history of breast cancer. 5. Anemia needs further outpatient followup. PROCEDURES DONE: 1. Abdominal MRI, no choledocholithiasis. 2. Laparoscopic cholecystectomy on 06/11/2018. 3. Abdominal CT. CONSULTATIONS: Dr. Brijesh Garcia, General Surgery. HOSPITAL COURSE: The patient is a 72-year-old who comes in with increasing abdominal pain and elevat ed LFTs. She was admitted and had an abdominal CT, which did show cholelithiasis and she had mild pa ncreatitis. MRCP revealed no choledocholithiasis, and she was monitored with IV fluids, n.p.o. statu s, and over the course of her hospitalization, her pancreatitis improved, and she was able to go to [facility] on 06/11/2018, for laparoscopic cholecystectomy. There were no significant complications. Ho wever, she did have difficulty eating the next day, so needed to stay an additional midnight postop. On the day of discharge, she is feeling much improved. She has minimal pain except for when she sne ezes, and is able to eat a light diet. DISCHARGE CONDITION: Good. She has been afebrile, heart rate 88, blood pressure 121/58, she is 94% on room air. She is alert and oriented. Abdomen is soft. DISCHARGE MEDICATIONS: Please see discharge medication form. FOLLOWUP: Will be with Dr. Garcia as scheduled. Total time spent with the patient on day of discharge in coordination of care is 35 minutes. /[id number]/MODL
[2018-06-13] MEDS: oxyCODONE IR 5 MG TAB PO PRN (12:24)
--- NOTE | 2018-06-13 13:46 | ASMTLACE ---
LACE Length of stay for Answers: 4-6 days current admission Acuity / Level of Answers: Yes Care: Did the patient have an inpatient admission? Comorbidities - select Answers: Any tumor (including all that apply lymphoma or leukemia) # of Emergency department Answers: 1-2 visits in the last 6 months Social determinants Answers: History of substance abuse (ETOH, street drugs, prescription drugs, etc.) Score: 13 Date Signed: 06/13/2018 01:46 PM Electronically Signed By:DARRYL Juares
--- NOTE | 2018-06-13 13:46 | ASMTCMCOM ---
CM Note CM Note Notes: Pt medically stable for d/c, no CM d/c needs identified. Date Signed: 06/13/2018 01:45 PM Electronically Signed By:DARRYL Juares
== END 2018-06-13 15:15 | disposition home or self-care (01) | DRG 417 ==
LOC: F3N 18:16
PROVIDERS: ADMIT Internal Medicine; ATTEND Internal Medicine
PROC: 0FT44ZZ Resection of Gallbladder, Percutaneous Endoscopic Approach (ICD-10-PCS; principal; 2018-06-11 10:30)
DX: K80.10 Calculus of gallbladder with chronic cholecystitis without obstruction (principal); K85.10 Biliary acute pancreatitis without necrosis or infection; R19.7 Diarrhea, unspecified; D64.9 Anemia, unspecified; Z85.3 Personal history of malignant neoplasm of breast; Z23 Encounter for immunization; I10 Essential (primary) hypertension
CPT/HCPCS: G0009; G0378; J0694; J1170; J1335; J2704; J3010; Q9967